=== PATIENT | male | born 1985 | race Caucasian/White ===

== ENCOUNTER 2023-07-16 08:15 | Outpatient (CLI) | payer BC, SELFPAY | END 2023-07-16 08:16 | disposition home or self-care (01) | LOC: NFLDREF 07-17 06:45 | PROVIDERS: PCP Physician Assistant Medical; Referring Provider Physician Assistant Medical; Visit Provider Physician Assistant Medical | DX: Z13.220 Encounter for screening for lipoid disorders (principal); Z13.228 Encounter for screening for other metabolic disorders | CPT/HCPCS: 80053; 80061 ==